=== PATIENT | female | born 1925 | race Caucasian/White ===

== ENCOUNTER → 2016-04-10 | Outpatient (CLI) | payer OTHER, BC ==
[~2016-04-10] MED LIST: ACET-1256 PO; ALBUAER2 INH; ALUM-51 PO; ANSHCCR PR; ASCO10003 PO; BCTOPO TOP; CALCTAB5 PO; CARB1SOL8 OT; CARV6.252 PO; CHOL100010 PO; CHOL100041 PO; CMD5 PO; CMD75 PO; CRAN1CAP15 PO; CRAN1TAB3 PO; DICL1GEL28 TOP; DIPH25CA65 PO; DOCU-94 PO; DORZ1SOL6 OPB; ESCI10TA17 PO; FRS/40 PO; GUAI1TAB55 PO; HYDR25SU20 PR; HYDRCRE28 TOP; IMD/2 PO; KETO2CRE14 TOP; KFL500HP PO; LEVO100T7 PO; LEVO125T4 PO; LSX40 PO; LSX80 PO; MAGNSUS5 PO; MENTOIN TD; MENTOIN TOP; MOME6000 NAE; MOML PO; MONT1TAB3 PO; MULTTAB PO; NRN100 PO; NSNN50; NYST100010 TD; NZRCR TOP; ONDA4TAB46 PO; POLY1SOL6 OP; POLYSOL4 OPB; POTA10TA PO; PRED1SUS3 OPB; PRVHFAIN INH; PSYL55.43 PO; PSYLPOW6 PO; SALI1SPR3 NAE; SIMV20TA2 PO; SULF800T23 PO; SYMIN160 INH; TRAM-10 PO; TRMCR515 TOP; TYLOTC500 PO; VNTHFA/IN INH; WARF-280 PO; WARF7.5T4 PO; [UNRECOGNIZED DRUG - CODE] PO; [UNRECOGNIZED DRUG - CODE] TOP
[2016-04-10 16:55] LABS: BASO % 0.3 %; BASO ABS # 0.02 K/uL (0-0.2); COMPLETE YES; EOS % 2.4 %; HEMATOCRIT 40.1 % (37-47); IG% 0.5 %; LYMPH % 16.8 %; LYMPH ABS # 1.32 K/uL (1.2-3.4); MEAN CELL VOLUME 87.6 fL (80-100); MEAN CORPUSCULAR HGB CONC 33.2 g/dl (32-36); MEAN PLATELET VOLUME 12.1 fL (7.4-10.4); MONO % 7.4 %; NEUT % 72.6 %; PLATELET COUNT 216 K/uL (130-400); RED BLOOD COUNT 4.58 M/uL (4.2-5.4); WHITE BLOOD COUNT 7.87 K/uL (4.8-10.8)
[2016-04-10 17:00] LABS: INR 2.2 (0.9-1.1); PROTHROMBIN TIME (PATIENT) 24.2 SECONDS (9.0-12.0)
[2016-04-10 17:01] LABS: BLOOD UREA NITROGEN 27 mg/dl (7-18); BUN/CREATININE RATIO 16.7 (10-20); CALCIUM 9.2 mg/dl (8.5-10.1); CARBON DIOXIDE 28 mmol/L (21-32); CHLORIDE 104 mmol/L (98-107); GLUCOSE 104 mg/dl (70-99); POTASSIUM 4.1 mmol/L (3.5-5.1); SODIUM 142 mmol/L (136-145)
== END | disposition home or self-care (01) ==
LOC: C.LABBC 12:41
PROVIDERS: ATTEND Internal Medicine Geriatric Medicine
DX: I35.0 Nonrheumatic aortic (valve) stenosis (principal); K62.5 Hemorrhage of anus and rectum; I48.2 Chronic atrial fibrillation

== ENCOUNTER 2016-05-14 23:51 | Emergency (ER) | payer OTHER, BC ==
[~2016-05-14] VITALS: Ht 154.9 cm; Wt 108.0 kg
[~2016-05-14 23:51] MED LIST changes: -ACET-1256 PO; -BCTOPO TOP; -CARB1SOL8 OT; -CARV6.252 PO; -CHOL100041 PO; -CMD5 PO; -CMD75 PO; -CRAN1TAB3 PO; -DIPH25CA65 PO; -DOCU-94 PO; -DORZ1SOL6 OPB; -ESCI10TA17 PO; -GUAI1TAB55 PO; -HYDR25SU20 PR; -HYDRCRE28 TOP; -IMD/2 PO; -KFL500HP PO; -LEVO100T7 PO; -LSX40 PO; -LSX80 PO; -MENTOIN TD; -MENTOIN TOP; -MOME6000 NAE; -MOML PO; -MONT1TAB3 PO; -NRN100 PO; -NYST100010 TD; -NZRCR TOP; -ONDA4TAB46 PO; -POLY1SOL6 OP; -POTA10TA PO; -PRED1SUS3 OPB; -PRVHFAIN INH; -PSYLPOW6 PO; -SALI1SPR3 NAE; -SIMV20TA2 PO; -SULF800T23 PO; -TRAM-10 PO; -TRMCR515 TOP; -TYLOTC500 PO; -VNTHFA/IN INH; -WARF-280 PO; -[UNRECOGNIZED DRUG - CODE] PO; -[UNRECOGNIZED DRUG - CODE] TOP
[2016-05-15 00:02] VITALS: Ht 154.9 cm; Wt 108.0 kg
[2016-05-15 00:38] LABS: HEMATOCRIT 38.9 % (37-47); MEAN CORPUSCULAR HEMOGLOBIN 30.7 pg (25-34); MEAN CORPUSCULAR HGB CONC 34.4 g/dl (32-36); MEAN PLATELET VOLUME 11.1 fL (7.4-10.4); PLATELET COUNT 196 K/uL (130-400); RED BLOOD COUNT 4.37 M/uL (4.2-5.4); WHITE BLOOD COUNT 5.99 K/uL (4.8-10.8)
[2016-05-15 00:57] LABS: BASO % 0.2 %; BASO ABS # 0.01 K/uL (0-0.2); COMPLETE YES; EOS % 2.7 %; IG% 0.5 %; LYMPH % 25.9 %; LYMPH ABS # 1.55 K/uL (1.2-3.4); NEUT % 62.7 %
--- NOTE | 2016-05-15 01:02 | EMERGENCY ROOM VISIT NOTE ---
History Report prepared by Norma: Barron Smart Under the Supervision of: Dr. Ann Marie De Paz D.O. First contact with patient: 00:17 Chief Complaint: SHOULDER PAIN Stated Complaint: SHOULDER/BACK PAIN History of Present Illness The patient is a 89 year old female who presents to the Emergency Room with complaints of sudden sharp left shoulder pain starting around 2100 tonight. The patient states that the pain went into her neck and chest. She states that the pain lasted for a couple of seconds, and then it went away. The patient states that she has never had anything like this before. The patient states that she has had a cough, and she states that she had congestive heart failure about a year ago. She additionally states that she is currently taking Coumadin. Source of History: patient Onset: 2100 Position: shoulder (left) Quality: sharp Timing: other (sudden) Associated Symptoms: + chest pain, + cough, + neck pain Review of Systems See HPI for pertinent positives & negatives. A total of 10 systems reviewed and were otherwise negative. Past Medical & Surgical Medical Problems: (1) Acute bronchitis (2) Acute exacerbation of CHF (congestive heart failure) (3) Acute pericarditis (4) Arthritis (5) Asthma (6) ATRIAL FIBRILLATION (7) CHF exacerbation (8) Diarrhea (9) Fever (10) HYPERLIPIDEMIA NEC/NOS (11) HYPERTENSION NOS (12) INTERTROCHANTERIC FX-CL (13) Irregular heart rhythm (14) KNEE JOINT REPLACEMENT STATUS (15) Murmur, cardiac (16) Scarlet fever (17) Stasis dermatitis Surgical Problems: (1) History of appendectomy (2) History of cholecystectomy Family History Diabetes mellitus FHx: lung disease Gallbladder disease Heart disease Hypertension Social History Smoking Status: Unknown if Ever Smoked Alcohol Use: none Drug Use: none Marital Status: Housing Status: assisted living Occupation Status: retired Current/Historical Medications Scheduled Budesonide/Formoterol Fumarate (Symbicort 160/4.5 Inhaler ), 2 PUFFS INH QAM Carvedilol (Coreg), 6.25 MG PO BID Cholecalciferol (D 1000), 1,000 UNITS PO DAILY Cranberry-Vitamin C-Vitamin E (Cranberry), 450 MG PO BID Docusate Sodium (Colace), 200 CAP PO DAILY Dorzolamide Hcl-Timolol Maleat (Cosopt Oph), 1 DROP OPB BID Escitalopram (Lexapro), 10 MG PO DAILY Ketoconazole 2% (Nizoral 2%), 1 APPLN TOP BID Levothyroxine Sodium (Levothyroxine Sodium), 125 MCG PO DAILY Loperamide Hcl (Imodium), 2 MG PO DAILY/PRN/UD Mometasone Furoate (Nasal) (Mometasone Furoate), 2 SPRAYS XXX DAILY Montelukast Sodium (Singulair), 10 MG PO DAILY Potassium Chloride (K-Tabs), 20 MEQ PO DAILY Prednisolone Acetate (Ophth) (Pred Forte 1% Oph), 1 DROPS OPB DAILY Psyllium (Reguloid), 0.5 TBS PO DAILY Saline (Saline Nasal Kincaid), 1 SPRAY NURYS BID Simvastatin (Zocor), 20 MG PO 3XWK Warfarin Sod (Coumadin), 5 MG PO 5XWK Warfarin Sod (Coumadin), 7.5 MG PO 2XWK Scheduled PRN Acetaminophen (Tylenol), 1,000 MG PO Q8 PRN for Pain or Fever Albuterol (Ventolin Hfa), 2 PUFFS INH QID PRN for Wheezing Alum & Mag Hydrox-Simethicone (Qc Antacid), 10-20 ML PO QID PRN for Dyspepsia Diphenhydramine Hcl (Benadryl Allergy), 25 MG PO Q8 PRN for Itching Furosemide (Lasix), 40 MG PO DAILY PRN for WEIGHT GAIN 3POUNDS OR MORE Guaifenesin Ext Rel (Mucinex Ext Rel), 600-1,200 MG PO BID PRN for CONGESTION Hydrocortisone Acetate (Rectal (Anusol-Hc), 25 MG NH BID PRN for Hemorrhoids Magnesium Hydroxide (Milk Of Magnesia), 30 ML PO DAILY PRN for ACUTE CONSTIPATION Menthol-Zinc Oxide (Calmoseptine), 1 APPLN TD DAILY PRN for IRRITATION Nystatin (Topical) (Nystop), 1 APPLN TD TID PRN for RASH Ondansetron Hcl (Zofran), 4 MG PO DAILY PRN for Nausea Phenylephrine W/ Dm-Gg (Qc Tussin Cf), 10 ML PO TID PRN for Cough Polyethylene Glycol-Propylene (Systane Ultra), 1 DROPS OP BID PRN for DRYNESS Allergies Coded Allergies: Tetanus Toxoid (Verified Allergy, Severe, REDNESS AND SWELLING OF INJECTION SITE AND SURROUNDING AREA, 04/25/15) Macrolides (Verified Allergy, Mild, 04/25/15) Tetracyclines (Verified Allergy, Mild, 04/25/15) Erythromycin (Verified Allergy, Unknown, ?, 04/25/15) Fluticasone (Verified Allergy, Unknown, UNKNOWN, 04/25/15) Levofloxacin (Unverified Allergy, Unknown, OTHER, 04/25/15) PT STATES DR Vale TOVAR SAID PATIENT IS NOT TO TAKE LEVAQUIN Milk Protein Extract (Verified Allergy, Unknown, UNKNOWN, 04/25/15) Salmeterol (Verified Allergy, Unknown, UNKNOWN, 04/25/15) Physical Exam Vital Signs Date Time Temp Pulse Resp B/P Pulse Ox O2 Delivery O2 Flow Rate FiO2 05/15/16 02:04 77 16 120/78 92 Room Air 05/15/16 01:17 78 16 121/72 93 Room Air 05/15/16 00:02 73 20 137/68 97 Room Air Physical Exam HEENT: Head - normocephalic and atraumatic Pupils are equal, round, and reactive to light. Extraocular eye muscles are intact, and sclera are anicteric. Nose - moist nasal mucosa without discharge. Mouth - moist buccal mucosa. Oropharynx is nonerythematous and there is no tonsillar exudate or edema noted. Neck: Supple; no JVD, nuchal rigidity, cervical lymphadenopathy, or auscultated bruits. Heart: Regular rate and rhythm. There is a normal S1 and S2 with no murmurs, clicks, or gallops appreciated. Lungs: Clear to auscultation bilaterally with no wheezes, rales, or rhonchi. Abdomen: Soft, completely nontender, nondistended, with good bowel sounds. There are no palpable pulsatile masses or hepatosplenomegaly. There is no guarding, rigidity, or rebound noted. Back: Obvious significant muscle spasm over the left posterior trapezius muscle. The patient has moderate pain with palpation in that area. Extremities: No evidence of cyanosis, clubbing, or edema. There are easily palpable peripheral pulses. Skin: warm and dry with good turgor and no rashes. Medical Decision & Procedures ER Provider Diagnostic Interpretation: X-ray results as stated below per interpretation by me: Chest X-ray: No acute findings in the left upper lung. No pneumothorax. Stable cardiomegaly Laboratory Results 05/15/16 00:05 Red Blood Count 4.37, Mean Corpuscular Volume 89.0, Mean Corpuscular Hemoglobin 30.7, Mean Corpuscular Hemoglobin Concent 34.4, Mean Platelet Volume 11.1, Neutrophils (%) (Auto) 62.7, Lymphocytes (%) (Auto) 25.9, Monocytes (%) (Auto) 8.0, Eosinophils (%) (Auto) 2.7, Basophils (%) (Auto) 0.2, Neutrophils # (Auto) 3.76, Lymphocytes # (Auto) 1.55, Monocytes # (Auto) 0.48, Eosinophils # (Auto) 0.16, Basophils # (Auto) 0.01 05/15/16 00:05 Test 05/15/16 00:05 White Blood Count 5.99 K/uL (4.8-10.8) Red Blood Count 4.37 M/uL (4.2-5.4) Hemoglobin 13.4 g/dL (12.0-16.0) Hematocrit 38.9 % (37-47) Mean Corpuscular Volume 89.0 fL (80-100) Mean Corpuscular Hemoglobin 30.7 pg (25-34) Mean Corpuscular Hemoglobin Concent 34.4 g/dl (32-36) Platelet Count 196 K/uL (130-400) Mean Platelet Volume 11.1 fL (7.4-10.4) Neutrophils (%) (Auto) 62.7 % Lymphocytes (%) (Auto) 25.9 % Monocytes (%) (Auto) 8.0 % Eosinophils (%) (Auto) 2.7 % Basophils (%) (Auto) 0.2 % Neutrophils # (Auto) 3.76 K/uL (1.4-6.5) Lymphocytes # (Auto) 1.55 K/uL (1.2-3.4) Monocytes # (Auto) 0.48 K/uL (0.11-0.59) Eosinophils # (Auto) 0.16 K/uL (0-0.5) Basophils # (Auto) 0.01 K/uL (0-0.2) RDW Standard Deviation 47.7 fL (36.4-46.3) RDW Coefficient of Variation 14.5 % (11.5-14.5) Immature Granulocyte % (Auto) 0.5 % Immature Granulocyte # (Auto) 0.03 K/uL (0.00-0.02) Red Blood Cell Morphology Unremarkable Anion Gap 11.0 mmol/L (3-11) Est Creatinine Clear Calc Drug Dose 30.9 ml/min Estimated GFR () 38.5 Estimated GFR (Non- 33.2 BUN/Creatinine Ratio 20.0 (10-20) Calcium Level 8.5 mg/dl (8.5-10.1) Total Creatine Kinase 47 U/L (26-192) Creatine Kinase MB < 0.5 ng/ml (0.5-3.6) Creatine Kinase MB Ratio (0-3.0) Troponin I < 0.015 ng/ml (0-0.045) Laboratory results per my review. ECG Indication: back/shoulder pain Rate (beats per minute): 74 Rhythm: atrial fibrillation Findings: no acute ischemic change, no ectopy ED Course 0017: Past medical records reviewed. The patient was evaluated in room A4. A complete history and physical exam was performed. A twelve-lead EKG was obtained. An IV lock was initiated and labs were drawn as above. The patient went for a chest x-ray as described above. 0205: Upon reevaluation, the patient is still pain free. I discussed findings and results with her. She verbalized agreement of the treatment plan. She was discharged home. Medical Decision The patient is a 89 year old female who presents to the ED with left shoulder pain. Differential diagnosis includes PE, pneumonia, cardiac ischemia, shingles , musculoskeletal, back pain, shoulder pain, bursitis of the shoulder Labs: Normal white count and H&H, negative troponin, normal glucose, BUN 28, creatinine 1.4 which is baseline for her The patient's episode of left-sided chest and shoulder discomfort lasted for only a couple of seconds. She had no recurrence of the pain while here in the emergency department. On physical exam, the patient had obvious significant muscle spasm with pain to palpation over the left shoulder. I've asked the patient use Tylenol for pain and apply heat to that area of muscles. The patient was told to return to the emergency department if she had recurrent symptoms that persisted or follow-up with her PCP. Impression Primary Impression: Left shoulder pain Scribe Attestation The scribe's documentation has been prepared under my direction and personally reviewed by me in its entirety. I confirm that the note above accurately reflects all work, treatment, procedures, and medical decision making performed by me. Departure Information Dispostion Home / Self-Care Referrals Edwardo Tovar M.D. (PCP) Forms HOME CARE DOCUMENTATION FORM, IMPORTANT VISIT INFORMATION Patient Instructions [facility] Additional Instructions Rest. Apply heat to your shoulder Use tylenol for the pain Follow up with the PCP if symptoms persist
[2016-05-15] MEDS ORDERED: CMD5 PO (01:07)
[2016-05-15] MEDS ORDERED: CMD75 PO (01:10)
[2016-05-15 01:13] LABS: BLOOD UREA NITROGEN 28 mg/dl (7-18); CALCIUM 8.5 mg/dl (8.5-10.1); CARBON DIOXIDE 27 mmol/L (21-32); CHLORIDE 104 mmol/L (98-107); GLUCOSE 98 mg/dl (70-99); POTASSIUM 3.7 mmol/L (3.5-5.1); SODIUM 142 mmol/L (136-145)
[2016-05-15] MEDS ORDERED: HYDR25SU20 PR (01:19)
--- NOTE | 2016-05-15 06:53 | DIAGNOSTIC IMAGING REPORT ---
CHEST 2 VIEWS ROUTINE CLINICAL HISTORY: eval left upper chest pain dyspnea COMPARISON STUDY: 06/21/2015 FINDINGS: Slight chronic blunting lateral costophrenic angles. Lungs otherwise appear clear. The heart is top limits normal terms of size. IMPRESSION: Chronic change. No acute process. Electronically signed by: Navarro Nova M.D. 05/15/2016 6:52 AM Dictated Date/Time: 05/15/2016 6:51 AM
[2016-05-15 07:36] VITALS: BP 152/81; PULSE 71; O2SAT 97
[2016-07-24] MEDS ORDERED: KFL500HP PO (09:04)
[2016-08-05] MEDS ORDERED: SULF800T23 PO (13:38)
[2016-12-24] MEDS ORDERED: CHOL100041 PO (00:48)
[2016-12-24] MEDS ORDERED: MOME6000 NAE (00:53)
[2016-12-24] MEDS ORDERED: NYST100010 TD (00:55)
[2016-12-24] MEDS ORDERED: POTA10TA PO (00:58)
[2016-12-24] MEDS ORDERED: PSYLPOW6 PO (01:01)
[2016-12-24] MEDS ORDERED: SALI1SPR3 NAE (01:03)
[2016-12-24] MEDS ORDERED: MENTOIN TD (01:13)
[2016-12-24] MEDS ORDERED: GUAI1TAB55 PO (01:25)
[2016-12-24] MEDS ORDERED: ALUM-51 PO (01:27)
[2016-12-24] MEDS ORDERED: [UNRECOGNIZED DRUG - CODE] PO (01:29)
[2016-12-24] MEDS ORDERED: POLY1SOL6 OP (01:31)
[2016-12-24] MEDS ORDERED: NRN100 PO (09:04)
[2016-12-24] MEDS ORDERED: LSX80 PO (09:04)
[2016-12-24] MEDS ORDERED: ACET-1256 PO (09:04)
[2016-12-24] MEDS ORDERED: LSX40 PO (09:04)
[2016-12-24] MEDS ORDERED: DIPH25CA65 PO (10:51)
[2016-12-24] MEDS ORDERED: DOCU-94 PO (10:51)
[2016-12-24] MEDS ORDERED: IMD/2 PO (10:51)
[2016-12-24] MEDS ORDERED: CARV6.252 PO (10:51)
[2016-12-24] MEDS ORDERED: MOML PO (15:24)
[2016-12-24] MEDS ORDERED: ONDA4TAB46 PO (18:07)
[2016-12-24] MEDS ORDERED: DORZ1SOL6 OPB (18:07)
[2016-12-24] MEDS ORDERED: PRVHFAIN INH (18:07)
[2016-12-24] MEDS ORDERED: TYLOTC500 PO (18:07)
[2016-12-24] MEDS ORDERED: ESCI10TA17 PO (18:07)
[2016-12-24] MEDS ORDERED: TRAM-10 PO (18:07)
[2016-12-24] MEDS ORDERED: MENTOIN TOP (21:22)
[2016-12-24] MEDS ORDERED: SYMIN160 INH (21:22)
[2016-12-24] MEDS ORDERED: CARB1SOL8 OT (21:22)
[2016-12-24] MEDS ORDERED: LEVO100T7 PO (21:22)
[2016-12-24] MEDS ORDERED: WARF-280 PO (21:22)
[2016-12-24] MEDS ORDERED: [UNRECOGNIZED DRUG - CODE] TOP (21:22)
[2016-12-24] MEDS ORDERED: CRAN1TAB3 PO (21:22)
[2016-12-24] MEDS ORDERED: MONT1TAB3 PO (23:30)
[2016-12-24] MEDS ORDERED: SIMV20TA2 PO (23:32)
[2016-12-24] MEDS ORDERED: PRED1SUS3 OPB (23:36)
[2016-12-25] MEDS ORDERED: TRMCR515 TOP (22:55)
[2016-12-25] MEDS ORDERED: NZRCR TOP (22:55)
[2016-12-25] MEDS ORDERED: HYDRCRE28 TOP (22:55)
== END 2016-05-15 07:37 | disposition home or self-care (01) ==
LOC: EDBD 23:51 → C.EDA 23:53
DX: M25.512 Pain in left shoulder (principal); R07.89 Other chest pain; I50.9 Heart failure, unspecified; J45.909 Unspecified asthma, uncomplicated; I48.91 Unspecified atrial fibrillation; I11.0 Hypertensive heart disease with heart failure; E78.5 Hyperlipidemia, unspecified; Z79.899 Other long term (current) drug therapy; Z79.01 Long term (current) use of anticoagulants; Z83.3 Family history of diabetes mellitus; Z82.49 Family history of ischemic heart disease and other diseases of the circulatory system

== ENCOUNTER 2016-07-17 12:48 | Emergency (ER) | payer OTHER, BC ==
[~2016-07-17] VITALS: Ht 162.6 cm; Wt 103.1 kg
[~2016-07-17 12:48] MED LIST changes: -ACET-1256 PO; -ALUM-51 PO; -BCTOPO TOP; -CARB1SOL8 OT; -CARV6.252 PO; -CHOL100041 PO; -CRAN1TAB3 PO; -DIPH25CA65 PO; -DOCU-94 PO; -DORZ1SOL6 OPB; -ESCI10TA17 PO; -GUAI1TAB55 PO; -HYDRCRE28 TOP; -IMD/2 PO; -KFL500HP PO; -LEVO100T7 PO; -LSX40 PO; -LSX80 PO; -MENTOIN TD; -MENTOIN TOP; -MOME6000 NAE; -MOML PO; -MONT1TAB3 PO; -NRN100 PO; -NYST100010 TD; -NZRCR TOP; -ONDA4TAB46 PO; -POLY1SOL6 OP; -POTA10TA PO; -PRED1SUS3 OPB; -PRVHFAIN INH; -PSYLPOW6 PO; -SALI1SPR3 NAE; -SIMV20TA2 PO; -SULF800T23 PO; -TRAM-10 PO; -TRMCR515 TOP; -TYLOTC500 PO; -VNTHFA/IN INH; -WARF-280 PO; -[UNRECOGNIZED DRUG - CODE] PO; -[UNRECOGNIZED DRUG - CODE] TOP
[2016-07-17 13:00] VITALS: TEMP 36.8; Ht 162.6 cm; Wt 103.1 kg
[2016-07-17] MEDS ORDERED: OXYCODONE HCL IR 5 MG TAB (IMMEDIATE RELEASE) PO STA (13:18)
[2016-07-17 13:57] LABS: BASO % 0.1 %; BASO ABS # 0.01 K/uL (0-0.2); COMPLETE YES; EOS % 2.1 %; HEMATOCRIT 43.4 % (37-47); IG% 0.4 %; LYMPH % 17.4 %; LYMPH ABS # 1.18 K/uL (1.2-3.4); MEAN CORPUSCULAR HGB CONC 32.9 g/dl (32-36); MEAN PLATELET VOLUME 11.7 fL (7.4-10.4); MONO % 7.8 %; NEUT % 72.2 %; PLATELET COUNT 206 K/uL (130-400); RED BLOOD COUNT 4.93 M/uL (4.2-5.4)
[2016-07-17 14:14] LABS: PARTIAL THROMBOPLASTIN RATIO 1.7
--- NOTE | 2016-07-17 14:14 | DIAGNOSTIC IMAGING REPORT ---
CT SCAN OF THE BRAIN WITHOUT IV CONTRAST CLINICAL HISTORY: Fall. COMPARISON STUDY: No priors. TECHNIQUE: Unenhanced axial CT scan of the brain is performed from the vertex to the skull base. CT DOSE: 1039.27 mGy.cm FINDINGS: Brain parenchyma: There are age-related involutional changes noting mild subcortical and periventricular microangiopathic change. There is no hemorrhage, mass effect, or evidence of acute territorial ischemia by CT criteria. Baad-white matter is preserved. No extra-axial fluid collection is seen. Prominent extra-axial CSF is noted. Ventricles, sulci, cisterns: Prominent secondary to involutional change. Intracranial vasculature: There is atherosclerotic calcification of the cavernous carotid arteries. Calvarium: The skeletal structures are osteopenic. There is no depressed calvarial fracture. Sinuses and mastoids: The visualized paranasal sinuses are clear. The mastoid air cells are well pneumatized. Orbits: The bony orbits are grossly intact. There are bilateral ocular lens implants and there has been banding of both ocular globes. IMPRESSION: Senescent changes as above with no hemorrhage, mass effect, or evidence of acute territorial ischemia by CT criteria. Electronically signed by: Rock Reid M.D. 07/17/2016 2:12 PM Dictated Date/Time: 07/17/2016 2:09 PM
[2016-07-17 14:22] LABS: BUN/CREATININE RATIO 18.1 (10-20); CALCIUM 9.2 mg/dl (8.5-10.1); CREATININE 1.4 mg/dl (0.60-1.20); POTASSIUM 3.5 mmol/L (3.5-5.1)
--- NOTE | 2016-07-17 14:23 | DIAGNOSTIC IMAGING REPORT ---
CERVICAL SPINE CT CT DOSE: HISTORY: Trauma Fall. On Coumadin. Left side neck pain TECHNIQUE: Multiaxial CT images of the cervical spine were performed and reformatted in the sagittal and coronal plane without the use of contrast. COMPARISON: None. FINDINGS: No fractures. No subluxation. Prevertebral soft tissues and the C1-C2 interval are intact. No pneumothorax. Degenerative disc change most prominent at C5-C6. No evidence for compression deformity. C1-C2 complex is intact. Pulmonary apices are clear. IMPRESSION: No fractures within the cervical spine. Moderate degenerative change. Electronically signed by: Navarro Nova M.D. 07/17/2016 2:21 PM Dictated Date/Time: 07/17/2016 2:15 PM
[2016-07-17 14:26] LABS: INR 3.8 (0.9-1.1)
--- NOTE | 2016-07-17 15:22 | DIAGNOSTIC IMAGING REPORT ---
LEFT SHOULDER 3 VIEWS HISTORY: Fall. Left shoulder pain COMPARISON: None. FINDINGS: There is no fracture or dislocation. Soft tissue swelling within the lateral shoulder. No radiopaque foreign bodies. The bones are osteopenic. The left clavicle is intact. Mild degenerative changes within the left shoulder. IMPRESSION: Soft tissue swelling within the left shoulder. No fracture or dislocation. Electronically signed by: Lobo Farris M.D. 07/17/2016 3:20 PM Dictated Date/Time: 07/17/2016 3:18 PM
--- NOTE | 2016-07-17 15:22 | DIAGNOSTIC IMAGING REPORT ---
TWO VIEW CHEST CLINICAL HISTORY: Fall. Left-sided chest pain. FINDINGS: AP and lateral chest radiographs are compared to study dated 05/15/16 and correlated with chest CT dated 04/26/2015.. The examination is degraded by large body habitus and by patient rotation on AP view. The heart is enlarged and there is atherosclerotic calcification of the thoracic aorta. The pulmonary vasculature is noncongested. There is bibasilar atelectasis. No airspace consolidation or large pleural effusion is seen. Atelectasis is noted at the left lung base. There is no pneumothorax. The skeletal structures are osteopenic. 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 Cholecystectomy clips are identified in the right upper quadrant. IMPRESSION: Cardiomegaly with no acute cardiopulmonary abnormality. Electronically signed by: Rock Reid M.D. 07/17/2016 3:20 PM Dictated Date/Time: 07/17/2016 3:18 PM
[2016-07-17] MEDS ORDERED: NZRCR TOP (15:24)
[2016-07-17] MEDS ORDERED: VNTHFA/IN INH (15:24)
--- NOTE | 2016-07-17 15:25 | DIAGNOSTIC IMAGING REPORT ---
LEFT FOREARM 2 VIEWS CLINICAL HISTORY: Fall with left arm pain. FINDINGS: AP and lateral views of the left forearm are obtained. Correlation is made with left elbow radiographs dated 10/13/2007. The skeletal structures are osteopenic. There is no radiographic evidence of fracture. Advanced arthritic change and chronic appearing deformity is noted in the wrist. Chronic posttraumatic deformity is noted in the radial head. Arthritic change is also seen in the elbow. Soft tissue edema is present dorsally. There is atherosclerotic calcification of the regional arteries. IMPRESSION: 1. Dorsal soft tissue edema with no fracture identified in the left forearm. 2. Osteopenia with degenerative and chronic posttraumatic findings as above. Electronically signed by: Rock Reid M.D. 07/17/2016 3:23 PM Dictated Date/Time: 07/17/2016 3:20 PM
[2016-07-17 16:34] VITALS: BP 115/65; PULSE 86; O2SAT 92
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
--- NOTE | 2016-07-17 17:10 | EMERGENCY ROOM VISIT NOTE ---
History First contact with patient: 13:06 Chief Complaint: FALL Stated Complaint: FALL History of Present Illness The patient is a 89 year old female who presents to the Emergency Room with complaints of mechanical fall that occurred approximately one hour prior to arrival. The patient was in this facility for x-rays were ordered as an outpatient. The patient states that she had x-rays performed of her low back, and as she exited the x-ray area she was accidentally struck by laundry cart. The patient states that she fell forward over her walker onto her left side. She does not believe that she struck her head, but does complain of left-sided neck, shoulder, and forearm pain. She does not believe that she lost consciousness. The patient is on Coumadin for atrial fibrillation. She does have some left upper chest wall pain with deep inspiration. She has had some ongoing left hip pain and did take Tylenol earlier today. Patient does not report lightheadedness, dizziness, palpitations, or shortness of breath before or after the event. She was able to ambulate following the fall. She rates her current discomfort a 5/10. She believes her tetanus is up-to-date. Review of Systems More than 10 systems were reviewed and otherwise negative with the exception of history of present illness. Past Medical/Surgical History Medical Problems: (1) Acute bronchitis (2) Acute exacerbation of CHF (congestive heart failure) (3) Acute pericarditis (4) Arthritis (5) Asthma (6) ATRIAL FIBRILLATION (7) CHF exacerbation (8) Diarrhea (9) Fever (10) HYPERLIPIDEMIA NEC/NOS (11) HYPERTENSION NOS (12) INTERTROCHANTERIC FX-CL (13) Irregular heart rhythm (14) KNEE JOINT REPLACEMENT STATUS (15) Murmur, cardiac (16) Scarlet fever (17) Stasis dermatitis Surgical Problems: (1) History of appendectomy (2) History of cholecystectomy Family History Diabetes mellitus FHx: lung disease Gallbladder disease Heart disease Hypertension Social History Smoking Status: Never Smoker Alcohol Use: none Drug Use: none Marital Status: Housing Status: assisted living Occupation Status: retired Current/Historical Medications Scheduled Budesonide/Formoterol Fumarate (Symbicort 160/4.5 Inhaler ), 2 PUFFS INH QAM Carvedilol (Coreg), 6.25 MG PO BID Cholecalciferol (D 1000), 1,000 UNITS PO DAILY Cranberry-Vitamin C-Vitamin E (Cranberry), 450 MG PO BID Docusate Sodium (Colace), 200 CAP PO DAILY Dorzolamide Hcl-Timolol Maleat (Cosopt Oph), 1 DROP OPB BID Escitalopram (Lexapro), 10 MG PO DAILY Ketoconazole (Ketoconazole), 1 APPLN TOP BID Levothyroxine Sodium (Levothyroxine Sodium), 125 MCG PO DAILY Loperamide Hcl (Imodium), 2 MG PO DAILY/PRN/UD Mometasone Furoate (Nasal) (Mometasone Furoate), 2 SPRAYS XXX DAILY Montelukast Sodium (Singulair), 10 MG PO DAILY Potassium Chloride (K-Tabs), 20 MEQ PO DAILY Prednisolone Acetate (Ophth) (Pred Forte 1% Oph), 1 DROPS OPB DAILY Psyllium (Reguloid), 0.5 TBS PO DAILY Saline (Saline Nasal [place]), 1 SPRAY NURYS BID Simvastatin (Zocor), 20 MG PO 3XWK Warfarin Sod (Coumadin), 5 MG PO 5XWK Warfarin Sod (Coumadin), 7.5 MG PO 2XWK Scheduled PRN Acetaminophen (Tylenol), 1,000 MG PO Q8 PRN for Pain or Fever Albuterol Hfa (Ventolin Hfa), 2 PUFFS INH QID PRN for SOB/Wheezing Alum & Mag Hydrox-Simethicone (Qc Antacid), 10-20 ML PO QID PRN for Dyspepsia Diphenhydramine Hcl (Benadryl Allergy), 25 MG PO Q8 PRN for Itching Furosemide (Lasix), 40 MG PO DAILY PRN for WEIGHT GAIN 3POUNDS OR MORE Guaifenesin Ext Rel (Mucinex Ext Rel), 600-1,200 MG PO BID PRN for CONGESTION Hydrocortisone Acetate (Rectal (Anusol-Hc), 25 MG VT BID PRN for Hemorrhoids Magnesium Hydroxide (Milk Of Magnesia), 30 ML PO DAILY PRN for Constipation Menthol-Zinc Oxide (Calmoseptine), 1 APPLN TD DAILY PRN for IRRITATION Nystatin (Topical) (Nystop), 1 APPLN TD TID PRN for RASH Ondansetron Hcl (Zofran), 4 MG PO DAILY PRN for Nausea Phenylephrine W/ Dm-Gg ([facility]), 10 ML PO TID PRN for Cough Polyethylene Glycol-Propylene (Systane Ultra), 1 DROPS OP BID PRN for DRYNESS Allergies Coded Allergies: Tetanus Toxoid (Verified Allergy, Severe, REDNESS AND SWELLING OF INJECTION SITE AND SURROUNDING AREA, 07/17/16) Macrolides (Verified Allergy, Mild, 07/17/16) Tetracyclines (Verified Allergy, Mild, 07/17/16) Erythromycin (Verified Allergy, Unknown, ?, 07/17/16) Fluticasone (Verified Allergy, Unknown, UNKNOWN, 07/17/16) Levofloxacin (Verified Allergy, Unknown, OTHER, 07/17/16) PT STATES DR Vale TOVAR SAID PATIENT IS NOT TO TAKE LEVAQUIN Milk Protein Extract (Verified Allergy, Unknown, UNKNOWN, 07/17/16) Salmeterol (Verified Allergy, Unknown, UNKNOWN, 07/17/16) Physical Exam Vital Signs Date Time Temp Pulse Resp B/P Pulse Ox O2 Delivery O2 Flow Rate FiO2 07/17/16 16:34 86 18 115/65 92 Room Air 07/17/16 14:53 78 18 120/67 94 Room Air 07/17/16 13:00 36.8 73 18 126/68 93 Room Air Physical Exam VITALS: Vitals are noted on the nurse's note and reviewed by myself. Vital signs stable. GENERAL: Well-developed, well-nourished, white female, who is in no acute distress and resting comfortably. Patient is cooperative with the examination. HEAD: Normocephalic atraumatic. EARS: External ear normal. External auditory canals clear, tympanic membranes pearly abad without erythema or effusion bilaterally. EYES: Pupils equal round and reactive to light and accommodation. Conjunctivae without injection, sclerae without icterus. Extraocular movements intact. NOSE: Patent, turbinates without inflammation or discharge. NECK: Supple without nuchal rigidity. No lymphadenopathy. No thyromegaly. Mild left-sided paracervical tenderness noted. No distinct midline cervical tenderness HEART: Regular rate and rhythm with course 3/6 systolic murmur LUNGS: Clear to auscultation bilaterally without wheezes, rales or rhonchi. No retractions or accessory muscle use. ABDOMEN: Positive normal bowel sounds x 4. Soft, nontender, without masses or organomegaly. No guarding or rebound tenderness. MUSCULOSKELETAL: Palpable tenderness appreciated over the left superior scapula. The patient is with full range of motion of the left upper extremity. No clavicular tenderness. There is additional tenderness over the mid lateral forearm with noted skin tear measuring 3 x 2 cm with underlying hematoma. No significant bleeding or deformity noted. Neurovascular status is intact to the distal extremity. NEURO: Patient was alert and oriented to person place and time. CN II through XII grossly intact. Medical Decision & Procedures ER Provider Diagnostic Interpretation: CT SCAN OF THE BRAIN WITHOUT IV CONTRAST CLINICAL HISTORY: Fall. COMPARISON STUDY: No priors. TECHNIQUE: Unenhanced axial CT scan of the brain is performed from the vertex to the skull base. CT DOSE: 1039.27 mGy.cm FINDINGS: Brain parenchyma: There are age-related involutional changes noting mild subcortical and periventricular microangiopathic change. There is no hemorrhage, mass effect, or evidence of acute territorial ischemia by CT criteria. Abad-white matter is preserved. No extra-axial fluid collection is seen. Prominent extra-axial CSF is noted. Ventricles, sulci, cisterns: Prominent secondary to involutional change. Intracranial vasculature: There is atherosclerotic calcification of the cavernous carotid arteries. Calvarium: The skeletal structures are osteopenic. There is no depressed calvarial fracture. Sinuses and mastoids: The visualized paranasal sinuses are clear. The mastoid air cells are well pneumatized. Orbits: The bony orbits are grossly intact. There are bilateral ocular lens implants and there has been banding of both ocular globes. IMPRESSION: Senescent changes as above with no hemorrhage, mass effect, or evidence of acute territorial ischemia by CT criteria. CERVICAL SPINE CT CT DOSE: HISTORY: Trauma Fall. On Coumadin. Left side neck pain TECHNIQUE: Multiaxial CT images of the cervical spine were performed and reformatted in the sagittal and coronal plane without the use of contrast. COMPARISON: None. FINDINGS: No fractures. No subluxation. Prevertebral soft tissues and the C1-C2 interval are intact. No pneumothorax. Degenerative disc change most prominent at C5-C6. No evidence for compression deformity. C1-C2 complex is intact. Pulmonary apices are clear. IMPRESSION: No fractures within the cervical spine. Moderate degenerative change. TWO VIEW CHEST CLINICAL HISTORY: Fall. Left-sided chest pain. FINDINGS: AP and lateral chest radiographs are compared to study dated 05/15/16 and correlated with chest CT dated 04/26/2015.. The examination is degraded by large body habitus and by patient rotation on AP view. The heart is enlarged and there is atherosclerotic calcification of the thoracic aorta. The pulmonary vasculature is noncongested. There is bibasilar atelectasis. No airspace consolidation or large pleural effusion is seen. Atelectasis is noted at the left lung base. There is no pneumothorax. The skeletal structures are osteopenic. 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 Cholecystectomy clips are identified in the right upper quadrant. IMPRESSION: Cardiomegaly with no acute cardiopulmonary abnormality. LEFT SHOULDER 3 VIEWS HISTORY: Fall. Left shoulder pain COMPARISON: None. FINDINGS: There is no fracture or dislocation. Soft tissue swelling within the lateral shoulder. No radiopaque foreign bodies. The bones are osteopenic. The left clavicle is intact. Mild degenerative changes within the left shoulder. IMPRESSION: Soft tissue swelling within the left shoulder. No fracture or dislocation. LEFT FOREARM 2 VIEWS CLINICAL HISTORY: Fall with left arm pain. FINDINGS: AP and lateral views of the left forearm are obtained. Correlation is made with left elbow radiographs dated 10/13/2007. The skeletal structures are osteopenic. There is no radiographic evidence of fracture. Advanced arthritic change and chronic appearing deformity is noted in the wrist. Chronic posttraumatic deformity is noted in the radial head. Arthritic change is also seen in the elbow. Soft tissue edema is present dorsally. There is atherosclerotic calcification of the regional arteries. IMPRESSION: 1. Dorsal soft tissue edema with no fracture identified in the left forearm. 2. Osteopenia with degenerative and chronic posttraumatic findings as above. Laboratory Results 07/17/16 13:37 Red Blood Count 4.93, Mean Corpuscular Volume 88.0, Mean Corpuscular Hemoglobin 29.0, Mean Corpuscular Hemoglobin Concent 32.9, Mean Platelet Volume 11.7, Neutrophils (%) (Auto) 72.2, Lymphocytes (%) (Auto) 17.4, Monocytes (%) (Auto) 7.8, Eosinophils (%) (Auto) 2.1, Basophils (%) (Auto) 0.1, Neutrophils # (Auto) 4.91, Lymphocytes # (Auto) 1.18, Monocytes # (Auto) 0.53, Eosinophils # (Auto) 0.14, Basophils # (Auto) 0.01 07/17/16 13:37 Test 07/17/16 13:37 07/17/16 13:40 White Blood Count 6.80 K/uL (4.8-10.8) Red Blood Count 4.93 M/uL (4.2-5.4) Hemoglobin 14.3 g/dL (12.0-16.0) Hematocrit 43.4 % (37-47) Mean Corpuscular Volume 88.0 fL (80-100) Mean Corpuscular Hemoglobin 29.0 pg (25-34) Mean Corpuscular Hemoglobin Concent 32.9 g/dl (32-36) Platelet Count 206 K/uL (130-400) Mean Platelet Volume 11.7 fL (7.4-10.4) Neutrophils (%) (Auto) 72.2 % Lymphocytes (%) (Auto) 17.4 % Monocytes (%) (Auto) 7.8 % Eosinophils (%) (Auto) 2.1 % Basophils (%) (Auto) 0.1 % Neutrophils # (Auto) 4.91 K/uL (1.4-6.5) Lymphocytes # (Auto) 1.18 K/uL (1.2-3.4) Monocytes # (Auto) 0.53 K/uL (0.11-0.59) Eosinophils # (Auto) 0.14 K/uL (0-0.5) Basophils # (Auto) 0.01 K/uL (0-0.2) RDW Standard Deviation 46.1 fL (36.4-46.3) RDW Coefficient of Variation 14.1 % (11.5-14.5) Immature Granulocyte % (Auto) 0.4 % Immature Granulocyte # (Auto) 0.03 K/uL (0.00-0.02) Prothrombin Time 43.0 SECONDS (9.0-12.0) Prothromb Time International Ratio 3.8 (0.9-1.1) Activated Partial Thromboplast Time 44.2 SECONDS (21.0-31.0) Partial Thromboplastin Ratio 1.7 Anion Gap 10.0 mmol/L (3-11) Est Creatinine Clear Calc Drug Dose 31.9 ml/min Estimated GFR () 38.5 Estimated GFR (Non- 33.2 BUN/Creatinine Ratio 18.1 (10-20) Calcium Level 9.2 mg/dl (8.5-10.1) Bedside Troponin I 0.000 ng/ml (0-0.045) Medications Administered Medications (Trade) Dose Ordered Sig/[place] Route Start Time Stop Time Status Last Admin Dose Admin Oxycodone HCl (Roxicodone Immediate Rel Tab) 5 mg NOW STAT PO 07/17/16 13:18 07/17/16 13:21 DC 07/17/16 13:44 5 MG ED Course Physical exam and history were performed. Nursing notes and EMR were reviewed. Patient appears to have suffered a fall and subsequent injury to her left arm and left shoulder. She is on Coumadin and complains of some left-sided neck pain. The patient was given OxyIR 5 mg here in the department. Because of her symptoms I did elect to establish an IV and check labs. CT scans of the head and neck were performed because of her injury and comorbidities. Plain films of the chest, shoulder, and arm were also performed. Ice packs were placed that her wound was cleansed and dressed by nursing. The patient's blood work is as above and was reviewed. She does not have a significantly elevated white blood cell count or gross anemia, bandemia, or significant electrolyte imbalance. Troponin 1 is negative. EKG showed atrial fibrillation at 71 beats per minute without acute ST elevation or evidence of ischemia. CT scans of the head and neck were without acute findings. Likewise plain films were also without acute findings. The patient does have an elevated INR of 3.8. The case was discussed with my attending physician, Dr. Handy, who also independently evaluated the patient. The patient appears well at this time and is quite comfortable. She appears stable for discharge home provided that she have close follow-up with her primary care physician. The patient was pleased with this and may continue to use Tylenol at home for pain control. She was asked to monitor for worsening or evolving symptoms and otherwise invited back to the ER anytime. The patient was discharged home with a neighbor and rated her discomfort a 2/10 at the time of departure. The chart was completed utilizing [employer] Voice Recognition Software. Grammatical errors, random word insertions, pronoun errors, and incomplete sentences are an occasional consequence of this system due to software limitations, ambient noise, and hardware issues. Any formal questions or concerns about the content, text, or information contained within the body of this dictation should be directly addressed to the provider for clarification. . Medical Decision Differential diagnosis includes, but is not limited to: Sprain, strain, fracture , dislocation, subluxation, contusion, bleed, no mass, skin tear, and others Impression Primary Impression: Fall Additional Impression: Contusion of multiple sites Departure Information Referrals Edwardo Tovar M.D. (PCP) Patient Instructions My [facility] Problem Qualifiers
[2016-07-24] MEDS ORDERED: KFL500HP PO (09:04)
[2016-08-05] MEDS ORDERED: SULF800T23 PO (13:38)
[2016-12-24] MEDS ORDERED: CHOL100041 PO (00:48)
[2016-12-24] MEDS ORDERED: MOME6000 NAE (00:53)
[2016-12-24] MEDS ORDERED: NYST100010 TD (00:55)
[2016-12-24] MEDS ORDERED: POTA10TA PO (00:58)
[2016-12-24] MEDS ORDERED: PSYLPOW6 PO (01:01)
[2016-12-24] MEDS ORDERED: SALI1SPR3 NAE (01:03)
[2016-12-24] MEDS ORDERED: MENTOIN TD (01:13)
[2016-12-24] MEDS ORDERED: GUAI1TAB55 PO (01:25)
[2016-12-24] MEDS ORDERED: ALUM-51 PO (01:27)
[2016-12-24] MEDS ORDERED: [UNRECOGNIZED DRUG - CODE] PO (01:29)
[2016-12-24] MEDS ORDERED: POLY1SOL6 OP (01:31)
[2016-12-24] MEDS ORDERED: LSX40 PO (09:04)
[2016-12-24] MEDS ORDERED: ACET-1256 PO (09:04)
[2016-12-24] MEDS ORDERED: LSX80 PO (09:04)
[2016-12-24] MEDS ORDERED: NRN100 PO (09:04)
[2016-12-24] MEDS ORDERED: DIPH25CA65 PO (10:51)
[2016-12-24] MEDS ORDERED: DOCU-94 PO (10:51)
[2016-12-24] MEDS ORDERED: IMD/2 PO (10:51)
[2016-12-24] MEDS ORDERED: CARV6.252 PO (10:51)
[2016-12-24] MEDS ORDERED: MOML PO (15:24)
[2016-12-24] MEDS ORDERED: PRVHFAIN INH (18:07)
[2016-12-24] MEDS ORDERED: ONDA4TAB46 PO (18:07)
[2016-12-24] MEDS ORDERED: TYLOTC500 PO (18:07)
[2016-12-24] MEDS ORDERED: ESCI10TA17 PO (18:07)
[2016-12-24] MEDS ORDERED: DORZ1SOL6 OPB (18:07)
[2016-12-24] MEDS ORDERED: TRAM-10 PO (18:07)
[2016-12-24] MEDS ORDERED: LEVO100T7 PO (21:22)
[2016-12-24] MEDS ORDERED: [UNRECOGNIZED DRUG - CODE] TOP (21:22)
[2016-12-24] MEDS ORDERED: CARB1SOL8 OT (21:22)
[2016-12-24] MEDS ORDERED: WARF-280 PO (21:22)
[2016-12-24] MEDS ORDERED: CRAN1TAB3 PO (21:22)
[2016-12-24] MEDS ORDERED: SYMIN160 INH (21:22)
[2016-12-24] MEDS ORDERED: MENTOIN TOP (21:22)
[2016-12-24] MEDS ORDERED: MONT1TAB3 PO (23:30)
[2016-12-24] MEDS ORDERED: SIMV20TA2 PO (23:32)
[2016-12-24] MEDS ORDERED: PRED1SUS3 OPB (23:36)
[2016-12-25] MEDS ORDERED: NZRCR TOP (22:55)
[2016-12-25] MEDS ORDERED: TRMCR515 TOP (22:55)
[2016-12-25] MEDS ORDERED: HYDRCRE28 TOP (22:55)
== END 2016-07-17 16:35 | disposition home or self-care (01) ==
LOC: EDBD 12:48 → C.EDC 12:50
DX: S51.802A Unspecified open wound of left forearm, initial encounter (principal); S50.12XA Contusion of left forearm, initial encounter; W22.8XXA Striking against or struck by other objects, initial encounter; Y92.238 Other place in hospital as the place of occurrence of the external cause; M54.2 Cervicalgia; I48.91 Unspecified atrial fibrillation; R07.89 Other chest pain; I50.9 Heart failure, unspecified; M19.90 Unspecified osteoarthritis, unspecified site; E78.5 Hyperlipidemia, unspecified; I10 Essential (primary) hypertension; Z79.01 Long term (current) use of anticoagulants; Z96.659 Presence of unspecified artificial knee joint; Z86.19 Personal history of other infectious and parasitic diseases; Z83.3 Family history of diabetes mellitus; Z82.49 Family history of ischemic heart disease and other diseases of the circulatory system; Z87.440 Personal history of urinary (tract) infections

== ENCOUNTER → 2016-07-17 | Outpatient (CLI) | payer OTHER, BC ==
[~2016-07-17] MED LIST changes: +ACET-1256 PO; -ANSHCCR PR; -ASCO10003 PO; +BCTOPO TOP; -CALCTAB5 PO; +CARB1SOL8 OT; +CARV6.252 PO; -CHOL100010 PO; +CHOL100041 PO; +CMD5 PO; +CMD75 PO; +CRAN1TAB3 PO; -DICL1GEL28 TOP; +DIPH25CA65 PO; +DOCU-94 PO; +DORZ1SOL6 OPB; +ESCI10TA17 PO; +GUAI1TAB55 PO; +HYDR25SU20 PR; +HYDRCRE28 TOP; +IMD/2 PO; +KFL500HP PO; +LEVO100T7 PO; -LEVO125T4 PO; +LEVO125T5 PO; +LSX40 PO; +LSX80 PO; +MENTOIN TD; +MENTOIN TOP; +MOME6000 NAE; +MOML PO; +MONT1TAB3 PO; -MULTTAB PO; +NRN100 PO; -NSNN50; +NYST100010 TD; +NZRCR TOP; +ONDA4TAB46 PO; +POLY1SOL6 OP; -POLYSOL4 OPB; +POTA10TA PO; +PRED1SUS3 OPB; +PRVHFAIN INH; -PSYL55.43 PO; +PSYLPOW6 PO; +SALI1SPR3 NAE; +SIMV20TA2 PO; +SULF800T23 PO; +TRAM-10 PO; +TRMCR515 TOP; +TYLOTC500 PO; +VNTHFA/IN INH; +WARF-280 PO; -WARF7.5T4 PO; +[UNRECOGNIZED DRUG - CODE] PO; +[UNRECOGNIZED DRUG - CODE] TOP
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
--- NOTE | 2016-07-17 13:02 | DIAGNOSTIC IMAGING REPORT ---
LUMBAR SPINE 5 VIEWS CLINICAL HISTORY: Chronic low back pain. FINDINGS: Five views of the lumbar spine are compared to study dated 02/02/2012. Correlation is made with abdominal CT dated 03/04/[address] dated 04/26/2015. The skeletal structures are osteopenic. There is no radiographic evidence of acute fracture or malalignment. There is a mild superior endplate compression deformity of L2. This was also likely present on the 04/26/[address] Vertebral body height is otherwise maintained throughout the lumbar spine. Small anterior osteophytes are seen throughout. The transverse and spinous processes are intact. There is no evidence of spondylolysis. Multilevel facet arthropathy is noted, greatest in the lower lumbar region. Moderate degenerative disc space narrowing is seen at all levels. The bony pelvis is intact as imaged. Sclerotic change is noted in the sacroiliac joints. Chronic posttraumatic deformity and postoperative change is seen in the left femur. There is a nonobstructed abdominal bowel gas pattern. Cholecystectomy clips are noted. Advanced atherosclerotic calcification is seen in the abdominal aorta. IMPRESSION: 1. No acute bony abnormality is identified involving the lumbar spine. 2. There is a mild and likely chronic superior endplate compression deformity of L2. 3. Osteopenia and lumbosacral spondylosis as above. Dictated: 07/17/2016 12:31 PM Transcribed: 07/17/2016 1:01 PM Cb Electronically signed by: Rock Reid M.D. 07/17/2016 1:41 PM Dictated Date/Time: 07/17/2016 12:31 PM
== END ==
LOC: C.RADBC 11:18
PROVIDERS: ATTEND Internal Medicine Geriatric Medicine
DX: Z87.440 Personal history of urinary (tract) infections (principal)

== ENCOUNTER 2016-07-27 08:01 | Emergency (ER) | payer OTHER, BC ==
[~2016-07-27] VITALS: Ht 162.6 cm; Wt 105.0 kg
[~2016-07-27 08:01] MED LIST changes: -ALBUAER2 INH; -KETO2CRE14 TOP; +KFL500HP PO; -MAGNSUS5 PO; +NZRCR TOP; +VNTHFA/IN INH
[2016-07-27 08:12] VITALS: Ht 162.6 cm; Wt 105.0 kg
[2016-07-27] MEDS ORDERED: MoRPHine SULFATE 10 MG/ML CARP/VIAL IV PRN (08:30)
[2016-07-27] MEDS ORDERED: MoRPHine SULFATE 2 MG/ML CARP ONE (08:47)
[2016-07-27 08:51] LABS: HEMATOCRIT 40.8 % (37-47); MEAN CELL VOLUME 89.7 fL (80-100); MEAN CORPUSCULAR HEMOGLOBIN 28.6 pg (25-34); MEAN CORPUSCULAR HGB CONC 31.9 g/dl (32-36); MEAN PLATELET VOLUME 10.9 fL (7.4-10.4); PLATELET COUNT 209 K/uL (130-400); RED BLOOD COUNT 4.55 M/uL (4.2-5.4); WHITE BLOOD COUNT 6.35 K/uL (4.8-10.8)
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
[2016-07-27] MEDS ORDERED: BCTOPO TOP (09:04)
[2016-07-27 09:09] LABS: CALCIUM 9.2 mg/dl (8.5-10.1)
[2016-07-27 09:10] LABS: BLOOD UREA NITROGEN 23 mg/dl (7-18); BUN/CREATININE RATIO 18.8 (10-20); CARBON DIOXIDE 26 mmol/L (21-32); CHLORIDE 107 mmol/L (98-107); GLUCOSE 96 mg/dl (70-99); POTASSIUM 4.1 mmol/L (3.5-5.1); SODIUM 142 mmol/L (136-145)
--- NOTE | 2016-07-27 09:16 | DIAGNOSTIC IMAGING REPORT ---
CHEST 2 VIEWS ROUTINE HISTORY: left chest pain COMPARISON: Chest 07/17/2016. FINDINGS: The heart remains enlarged. No pleural effusions. No pneumothorax. No new focal lung consolidations to suggest pneumonia. No evidence for pulmonary edema. Bibasilar linear densities favor subsegmental atelectasis. IMPRESSION: No significant change compared to the prior study. No acute process. Electronically signed by: Lobo Farris M.D. 07/27/2016 9:14 AM Dictated Date/Time: 07/27/2016 9:13 AM
[2016-07-27 09:28] VITALS: O2SAT 93
[2016-07-27 10:29] VITALS: TEMP 36.6; O2SAT 95
[2016-07-27 10:51] LABS: PARTIAL THROMBOPLASTIN RATIO 2.6; PROTHROMBIN TIME (PATIENT) 80.1 SECONDS (9.0-12.0)
[2016-07-27 10:55] LABS: INR 6.9 (0.9-1.1)
[2016-07-27 11:09] VITALS: BP 115/74; PULSE 74
[2016-08-05] MEDS ORDERED: SULF800T23 PO (13:38)
[2016-12-24] MEDS ORDERED: CHOL100041 PO (00:48)
[2016-12-24] MEDS ORDERED: MOME6000 NAE (00:53)
[2016-12-24] MEDS ORDERED: NYST100010 TD (00:55)
[2016-12-24] MEDS ORDERED: POTA10TA PO (00:58)
[2016-12-24] MEDS ORDERED: PSYLPOW6 PO (01:01)
[2016-12-24] MEDS ORDERED: SALI1SPR3 NAE (01:03)
[2016-12-24] MEDS ORDERED: MENTOIN TD (01:13)
[2016-12-24] MEDS ORDERED: GUAI1TAB55 PO (01:25)
[2016-12-24] MEDS ORDERED: ALUM-51 PO (01:27)
[2016-12-24] MEDS ORDERED: [UNRECOGNIZED DRUG - CODE] PO (01:29)
[2016-12-24] MEDS ORDERED: POLY1SOL6 OP (01:31)
[2016-12-24] MEDS ORDERED: NRN100 PO (09:04)
[2016-12-24] MEDS ORDERED: LSX80 PO (09:04)
[2016-12-24] MEDS ORDERED: ACET-1256 PO (09:04)
[2016-12-24] MEDS ORDERED: LSX40 PO (09:04)
[2016-12-24] MEDS ORDERED: CARV6.252 PO (10:51)
[2016-12-24] MEDS ORDERED: IMD/2 PO (10:51)
[2016-12-24] MEDS ORDERED: DOCU-94 PO (10:51)
[2016-12-24] MEDS ORDERED: DIPH25CA65 PO (10:51)
[2016-12-24] MEDS ORDERED: MOML PO (15:24)
[2016-12-24] MEDS ORDERED: ESCI10TA17 PO (18:07)
[2016-12-24] MEDS ORDERED: DORZ1SOL6 OPB (18:07)
[2016-12-24] MEDS ORDERED: ONDA4TAB46 PO (18:07)
[2016-12-24] MEDS ORDERED: TYLOTC500 PO (18:07)
[2016-12-24] MEDS ORDERED: PRVHFAIN INH (18:07)
[2016-12-24] MEDS ORDERED: TRAM-10 PO (18:07)
[2016-12-24] MEDS ORDERED: CARB1SOL8 OT (21:22)
[2016-12-24] MEDS ORDERED: LEVO100T7 PO (21:22)
[2016-12-24] MEDS ORDERED: SYMIN160 INH (21:22)
[2016-12-24] MEDS ORDERED: CRAN1TAB3 PO (21:22)
[2016-12-24] MEDS ORDERED: [UNRECOGNIZED DRUG - CODE] TOP (21:22)
[2016-12-24] MEDS ORDERED: MENTOIN TOP (21:22)
[2016-12-24] MEDS ORDERED: WARF-280 PO (21:22)
[2016-12-24] MEDS ORDERED: MONT1TAB3 PO (23:30)
[2016-12-24] MEDS ORDERED: SIMV20TA2 PO (23:32)
[2016-12-24] MEDS ORDERED: PRED1SUS3 OPB (23:36)
[2016-12-25] MEDS ORDERED: TRMCR515 TOP (22:55)
[2016-12-25] MEDS ORDERED: HYDRCRE28 TOP (22:55)
[2016-12-25] MEDS ORDERED: NZRCR TOP (22:55)
== END 2016-07-27 11:25 | disposition home or self-care (01) ==
LOC: EDBD 08:01 → C.EDB 08:03
DX: S40.012A Contusion of left shoulder, initial encounter (principal); S40.022A Contusion of left upper arm, initial encounter; S50.12XA Contusion of left forearm, initial encounter; W22.8XXA Striking against or struck by other objects, initial encounter; Y92.239 Unspecified place in hospital as the place of occurrence of the external cause; D68.32 Hemorrhagic disorder due to extrinsic circulating anticoagulants; I50.9 Heart failure, unspecified; M19.90 Unspecified osteoarthritis, unspecified site; J45.909 Unspecified asthma, uncomplicated; I48.91 Unspecified atrial fibrillation; E78.5 Hyperlipidemia, unspecified; I10 Essential (primary) hypertension; Z79.01 Long term (current) use of anticoagulants; Z83.3 Family history of diabetes mellitus; Z82.49 Family history of ischemic heart disease and other diseases of the circulatory system

== ENCOUNTER 2016-07-30 16:59 | Emergency (ER) | payer OTHER, BC ==
[~2016-07-30] VITALS: Ht 162.6 cm; Wt 103.0 kg
[~2016-07-30 16:59] MED LIST changes: +BCTOPO TOP; -FRS/40 PO; -HYDR25SU20 PR; -NZRCR TOP; -VNTHFA/IN INH
[2016-07-30 17:04] VITALS: TEMP 36.5; Ht 162.6 cm; Wt 103.0 kg
[2016-07-30 17:57] VITALS: O2SAT 96
[2016-07-30] MEDS ORDERED: HYDR25SU20 PR (18:07)
[2016-07-30 18:16] LABS: BASO % 0.4 %; BASO ABS # 0.03 K/uL (0-0.2); COMPLETE YES; EOS % 2.6 %; HEMATOCRIT 37.8 % (37-47); IG% 0.9 %; LYMPH % 21.3 %; LYMPH ABS # 1.45 K/uL (1.2-3.4); MEAN CELL VOLUME 89.4 fL (80-100); MEAN CORPUSCULAR HEMOGLOBIN 29.3 pg (25-34); MEAN CORPUSCULAR HGB CONC 32.8 g/dl (32-36); MEAN PLATELET VOLUME 10.2 fL (7.4-10.4); MONO % 6.5 %; NEUT % 68.3 %; PLATELET COUNT 217 K/uL (130-400); RED BLOOD COUNT 4.23 M/uL (4.2-5.4); WHITE BLOOD COUNT 6.81 K/uL (4.8-10.8)
[2016-07-30 18:27] LABS: INR 2.9 (0.9-1.1); PROTHROMBIN TIME (PATIENT) 32.2 SECONDS (9.0-12.0)
--- NOTE | 2016-07-30 18:36 | DIAGNOSTIC IMAGING REPORT ---
CHEST ONE VIEW PORTABLE HISTORY: EVALUATE RESPIRATORY DISTRESS.DYSPNEA COMPARISON: Chest 07/27/2016. FINDINGS: The heart remains enlarged. No pneumothorax. No new focal lung consolidations. No evidence for pulmonary edema. No pleural effusions. Linear densities the left lung base favor scarring or atelectasis. This remains unchanged. IMPRESSION: No significant change compared to the prior study. No acute process. Electronically signed by: Lobo Farris M.D. 07/30/2016 6:34 PM Dictated Date/Time: 07/30/2016 6:33 PM
[2016-07-30 18:39] LABS: ALT/SGPT 19 U/L (12-78); AST/SGOT 15 U/L (15-37); BLOOD UREA NITROGEN 24 mg/dl (7-18); BUN/CREATININE RATIO 18.7 (10-20); CALCIUM 8.8 mg/dl (8.5-10.1); CARBON DIOXIDE 31 mmol/L (21-32); CHLORIDE 108 mmol/L (98-107); GLUCOSE 91 mg/dl (70-99); POTASSIUM 3.9 mmol/L (3.5-5.1); SODIUM 142 mmol/L (136-145)
[2016-07-30 18:44] LABS: ALB/GLOB RATIO 0.9 (0.9-2); ALKALINE PHOSPHATASE 103 U/L (45-117)
[2016-07-30 20:32] LABS: URINE APPEARANCE CLEAR (CLEAR); URINE BILIRUBIN NEG (NEG); URINE COLOR YELLOW; URINE NITRITE NEG (NEG); URINE SPECIFIC GRAVITY 1.017 (1.000-1.030); UROBILINOGEN NEG (NEG)
[2016-07-30 20:39] LABS: MANUAL MICROSCOPIC REQUIRED? NO; REVIEW REQ? NO
[2016-07-30 21:14] VITALS: BP 124/69; PULSE 68; O2SAT 95
--- NOTE | 2016-07-30 23:36 | EMERGENCY ROOM VISIT NOTE ---
History Report prepared by Norma: Marlon Good Under the Supervision of: Dr. Atif Lua D.O. First contact with patient: 17:25 Chief Complaint: SHORTNESS OF BREATH Stated Complaint: SOB Nursing Triage Summary: Pt arrives from [facility] for evaluation post episode of SOB. pt reports she was talking on the phone when she suddenly became SOB. symptoms now resolved. pt reports she was knocked down by a cart at the facility about 3-4 weeks ago. Bruising to left upper arm, bilateral lower extremities. Wound to left FA which she is seeing wound care for. pt reports some pain with deep breathing on her left side. "I fell on my left side when that happened". History of Present Illness The patient is an 89 year old female who presents to the Emergency Room with complaints of resolved shortness of breath beginning eight and a half hours prior to arrival. She currently rates her discomfort as a 6/10 in severity. The patient states she was talking on the phone this morning, when she lost her breath for approximately thirty seconds. She denies experiencing anything like the episode in the past. The patient also complains of left sided abdominal pain and left sided back pain with today's symptoms. She states she fell two weeks ago, in which, she fell onto her left side. The patient notes she was evaluated in the ED three days ago for her abdominal and back pain. She states her discomfort worsens with movement of her left arm. The patient notes she is unaware if the abdominal and back pain was what caused her shortness of breath this morning at 9 AM. She states she is on Coumadin. Pt denies headache, cough, runny nose, change in vision, fevers, chest pain, nausea, vomiting, diarrhea, pain with urination, and melena. Source of History: patient Onset: eight and a half hours SYSTEM CONTROLLER Position: other (global) Symptom Intensity: 6/10 Quality: other (shortness of breath) Timing: resolved Associated Symptoms: + SOB, + abdominal pain, + back pain Review of Systems See HPI for pertinent positives & negatives. A total of 10 systems reviewed and were otherwise negative. Past Medical & Surgical Medical Problems: (1) Acute bronchitis (2) Acute exacerbation of CHF (congestive heart failure) (3) Acute pericarditis (4) Arthritis (5) Asthma (6) ATRIAL FIBRILLATION (7) CHF exacerbation (8) Diarrhea (9) Fever (10) HYPERLIPIDEMIA NEC/NOS (11) HYPERTENSION NOS (12) INTERTROCHANTERIC FX-CL (13) Irregular heart rhythm (14) KNEE JOINT REPLACEMENT STATUS (15) Murmur, cardiac (16) Scarlet fever (17) Stasis dermatitis Surgical Problems: (1) History of appendectomy (2) History of cholecystectomy Family History Diabetes mellitus FHx: lung disease Gallbladder disease Heart disease Hypertension Social History Smoking Status: Never Smoker Alcohol Use: none Drug Use: none Marital Status: Housing Status: assisted living Occupation Status: retired Current/Historical Medications Scheduled Acetaminophen (Tylenol), 1,000 MG PO BID Bacitracin (Bacitracin), 1 APPLN TOP BID Budesonide/Formoterol Fumarate (Symbicort 160/4.5 Inhaler ), 2 PUFFS INH BID Carvedilol (Coreg), 6.25 MG PO BIDM Cholecalciferol (D 1000), 1,000 UNITS PO DAILY Cranberry-Vitamin C-Vitamin E (Cranberry), 450 MG PO BID Docusate Sodium (Colace), 200 CAP PO DAILY Dorzolamide Hcl-Timolol Maleat (Cosopt Oph), 1 DROP OPB BID Escitalopram (Lexapro), 10 MG PO DAILY Furosemide (Furosemide), 80 MG PO QAM Levothyroxine Sodium (Levothyroxine Sodium), 125 MCG PO DAILY Loperamide Hcl (Imodium), 2 MG PO DAILY/PRN/UD Montelukast Sodium (Singulair), 10 MG PO DAILY Potassium Chloride (K-Tabs), 20 MEQ PO DAILY Prednisolone Acetate (Ophth) (Pred Forte 1% Oph), 1 DROPS OPB DAILY Psyllium (Reguloid), 0.5 TBS PO DAILY Saline (Saline Nasal [place]), 1 SPRAY NURYS HS Simvastatin (Zocor), 20 MG PO 3XWK Warfarin Sod (Coumadin), 5 MG PO 5XWK Warfarin Sod (Coumadin), 7.5 MG PO 2XWK Scheduled PRN Acetaminophen (Tylenol), 1,000 MG PO Q8 PRN for Pain or Fever Albuterol (Ventolin Hfa), 1-2 PUFFS INH Q4 PRN for SOB/Wheezing Alum & Mag Hydrox-Simethicone (Qc Antacid), 10-20 ML PO QID PRN for Dyspepsia Diphenhydramine Hcl (Benadryl Allergy), 25 MG PO Q8 PRN for Itching Furosemide (Furosemide), 40 MG PO DAILY PRN for WITH WT > 230 LBS Gabapentin (Gabapentin), 100 MG PO HS PRN for MOOD DISORDER Guaifenesin Ext Rel (Mucinex Ext Rel), 600-1,200 MG PO BID PRN for CONGESTION Hydrocortisone Acetate (Rectal (Anusol-Hc), 25 MG AL BID PRN for Hemorrhoids Magnesium Hydroxide (Milk Of Magnesia), 30 ML PO DAILY PRN for Constipation Menthol-Zinc Oxide (Calmoseptine), 1 APPLN TD DAILY PRN for IRRITATION Mometasone Furoate (Nasal) (Mometasone Furoate), 2 SPRAYS NURYS DAILY PRN for Nasal Congestion Nystatin (Topical) (Nystop), 1 APPLN TD TID PRN for RASH Ondansetron Hcl (Zofran), 4 MG PO DAILY PRN for Nausea Phenylephrine W/ Dm-Gg (Qc Tussin Cf), 10 ML PO TID PRN for Cough Polyethylene Glycol-Propylene (Systane Ultra), 1 DROPS OP BID PRN for DRYNESS Tramadol (Ultram), 25 MG PO DAILY PRN for Pain Allergies Coded Allergies: Tetanus Toxoid (Verified Allergy, Severe, REDNESS AND SWELLING OF INJECTION SITE AND SURROUNDING AREA, 07/30/16) Macrolides (Verified Allergy, Mild, 07/30/16) Tetracyclines (Verified Allergy, Mild, 07/30/16) Codeine (Unverified Allergy, Unknown, UNKNOWN, 07/30/16) CODEINE DERIVATIVES Erythromycin (Verified Allergy, Unknown, ?, 07/30/16) Fluticasone (Verified Allergy, Unknown, UNKNOWN, 07/30/16) Levofloxacin (Verified Allergy, Unknown, OTHER, 07/30/16) PT STATES DR Vale TOVAR SAID PATIENT IS NOT TO TAKE LEVAQUIN Milk Protein Extract (Verified Allergy, Unknown, UNKNOWN, 07/30/16) Salmeterol (Verified Allergy, Unknown, UNKNOWN, 07/30/16) Physical Exam Vital Signs Date Time Temp Pulse Resp B/P Pulse Ox O2 Delivery O2 Flow Rate FiO2 07/30/16 21:14 68 19 124/69 95 07/30/16 19:24 70 20 122/66 95 Room Air 07/30/16 18:10 78 20 136/72 96 Room Air 07/30/16 17:57 96 Room Air 07/30/16 17:40 75 07/30/16 17:04 97 Room Air 07/30/16 17:04 36.5 93 22 154/84 97 Room Air 07/30/16 17:04 97 Room Air Physical Exam GENERAL: alert, well appearing, well nourished, no distress, non-toxic HEAD: normal cephalic, atraumatic EYE EXAM: normal conjunctiva, PERRL and EOM's grossly intact OROPHARYNX: no exudate, no erythema, lips, buccal mucosa, and tongue normal and mucous membranes are moist EARS: TMs clear b/l NECK: supple, no nuchal rigidity, no adenopathy, non-tender CHEST: stable to compression anteriorly and posteriorly LUNGS: clear to auscultation. Normal chest wall mechanics HEART: no murmurs, S1 normal and S2 normal CHEST: Bruising over left chest wall with clear reproducible tenderness tracking from mid thoracic around to left breast. ABDOMEN: abdomen soft, non-tender, normo-active bowel sounds, no masses, no rebound or guarding. PELVIS: stable to compression anteriorly and posteriorly BACK: Back is symmetrical on inspection and there is no deformity, no midline tenderness, no CVA tenderness. UPPER EXTREMITIES: Bruising along entire left arm. Full active and passive range of motion of all joints without tenderness to palpation LOWER EXTREMITIES: Calves equal bilaterally. Full active and passive range of motion of all joints without tenderness to palpation NEURO EXAM: Normal sensorium, cranial nerves II-XII grossly intact, normal speech, no gross weakness of arms, no gross weakness of legs. GCS: 15. SKIN: Diffused bruising. Medical Decision & Procedures ER Provider Diagnostic Interpretation: Radiology results as stated below per my review and the radiologist's interpretation: CHEST ONE VIEW PORTABLE HISTORY: EVALUATE RESPIRATORY DISTRESS.DYSPNEA COMPARISON: Chest 07/27/2016. FINDINGS: The heart remains enlarged. No pneumothorax. No new focal lung consolidations. No evidence for pulmonary edema. No pleural effusions. Linear densities the left lung base favor scarring or atelectasis. This remains unchanged. IMPRESSION: No significant change compared to the prior study. No acute process. Electronically signed by: Lobo Farris M.D. 07/30/2016 6:34 PM Laboratory Results 07/30/16 18:05 Red Blood Count 4.23, Mean Corpuscular Volume 89.4, Mean Corpuscular Hemoglobin 29.3, Mean Corpuscular Hemoglobin Concent 32.8, Mean Platelet Volume 10.2, Neutrophils (%) (Auto) 68.3, Lymphocytes (%) (Auto) 21.3, Monocytes (%) (Auto) 6.5, Eosinophils (%) (Auto) 2.6, Basophils (%) (Auto) 0.4, Neutrophils # (Auto) 4.65, Lymphocytes # (Auto) 1.45, Monocytes # (Auto) 0.44, Eosinophils # (Auto) 0.18, Basophils # (Auto) 0.03 07/30/16 18:05 Test 07/30/16 18:05 07/30/16 20:00 White Blood Count 6.81 K/uL (4.8-10.8) Red Blood Count 4.23 M/uL (4.2-5.4) Hemoglobin 12.4 g/dL (12.0-16.0) Hematocrit 37.8 % (37-47) Mean Corpuscular Volume 89.4 fL (80-100) Mean Corpuscular Hemoglobin 29.3 pg (25-34) Mean Corpuscular Hemoglobin Concent 32.8 g/dl (32-36) Platelet Count 217 K/uL (130-400) Mean Platelet Volume 10.2 fL (7.4-10.4) Neutrophils (%) (Auto) 68.3 % Lymphocytes (%) (Auto) 21.3 % Monocytes (%) (Auto) 6.5 % Eosinophils (%) (Auto) 2.6 % Basophils (%) (Auto) 0.4 % Neutrophils # (Auto) 4.65 K/uL (1.4-6.5) Lymphocytes # (Auto) 1.45 K/uL (1.2-3.4) Monocytes # (Auto) 0.44 K/uL (0.11-0.59) Eosinophils # (Auto) 0.18 K/uL (0-0.5) Basophils # (Auto) 0.03 K/uL (0-0.2) RDW Standard Deviation 46.2 fL (36.4-46.3) RDW Coefficient of Variation 14.2 % (11.5-14.5) Immature Granulocyte % (Auto) 0.9 % Immature Granulocyte # (Auto) 0.06 K/uL (0.00-0.02) Prothrombin Time 32.2 SECONDS (9.0-12.0) Prothromb Time International Ratio 2.9 (0.9-1.1) Anion Gap 3.0 mmol/L (3-11) Est Creatinine Clear Calc Drug Dose 34.3 ml/min Estimated GFR () 42.1 Estimated GFR (Non- 36.3 BUN/Creatinine Ratio 18.7 (10-20) Calcium Level 8.8 mg/dl (8.5-10.1) Total Bilirubin 0.8 mg/dl (0.2-1) Aspartate Amino Transf (AST/SGOT) 15 U/L (15-37) Alanine Aminotransferase (ALT/SGPT) 19 U/L (12-78) Alkaline Phosphatase 103 U/L (45-117) Troponin I < 0.015 ng/ml (0-0.045) Total Protein 6.6 gm/dl (6.4-8.2) Albumin 3.2 gm/dl (3.4-5.0) Globulin 3.4 gm/dl (2.5-4.0) Albumin/Globulin Ratio 0.9 (0.9-2) Urine Color YELLOW Urine Appearance CLEAR (CLEAR) Urine pH 5.0 (4.5-7.5) Urine Specific [place] 1.017 (1.000-1.030) Urine Protein NEG (NEG) Urine Glucose (UA) NEG (NEG) Urine Ketones NEG (NEG) Urine Occult Blood TRACE (NEG) Urine Nitrite NEG (NEG) Urine Bilirubin NEG (NEG) Urine Urobilinogen NEG (NEG) Urine Leukocyte Esterase SMALL (NEG) Urine WBC (Auto) 1-5 /hpf (0-5) Urine RBC (Auto) 0-4 /hpf (0-4) Urine Hyaline Casts (Auto) 1-5 /lpf (0-5) Urine Epithelial Cells (Auto) 5-10 /lpf (0-5) Urine Bacteria (Auto) NEG (NEG) Laboratory results per my review. ECG Indication: SOB/dyspnea Rate (beats per minute): 73 Rhythm: atrial fibrillation Findings: Q waves (Inferior and Septal), other (Normal axis) Comparison ECG Date: 07/27/2016 Change: no significant change ED Course ED COURSE: Vital signs were reviewed and showed normal vitals. The patients medical record was reviewed The above diagnostic studies were performed and reviewed. ED treatments and interventions as stated above. 1738: The patient was evaluated in room B4B. A complete history and physical examination was performed. 2014: Reevaluated and updated the patient at this time. 2054: Upon reevaluation, the patient is doing well.I discussed my findings with the patient and she understands and agrees with the treatment plan. Based on the patients age, coexisting illnesses, exam and lab findings the decision to treat as an outpatient was made. The patient remained stable while under my care. The patient appeared well at the time of discharge. Medical Decision Differential diagnoses include major intracranial, cervical, spinal, thoracic, abdominal, pelvic and neurologic injury. Fracture, contusion, sprain, strain, laceration, abrasions included as well. Patient is an 89-year-old female who presents the ER for chest pain which is been present the past 10 days. She notes that this has been present since she fell. She does have diffuse bruising on her left side. Pain is clearly reproducible on exam. She also complained of shortness of breath at 9 AM this morning which lasted for several seconds. She notes that she just could not take a breath. This resolved very quickly. CBC along with BMP, LFTs, bilirubin and troponin were negative. UA was negative. INR was supratherapeutic. Previous visit for same complaint had a negative d-dimer and consequently I did not pursue this any further. Chest x-ray was unremarkable. Patient and daughter were updated at bedside. She was discharged with reproducible musculoskeletal pain. Impression Primary Impression: Bruised ribs Scribe Attestation The scribe's documentation has been prepared under my direction and personally reviewed by me in its entirety. I confirm that the note above accurately reflects all work, treatment, procedures, and medical decision making performed by me. Departure Information Dispostion Home / Self-Care Referrals Edwardo Tovar M.D. (PCP) Forms HOME CARE DOCUMENTATION FORM, IMPORTANT VISIT INFORMATION Patient Instructions ED Contusion Rib, My [facility] Additional Instructions Please follow up with your primary care doctor with in the next 24 hours. Any worsening of your symptoms, please return to the ED immediately. This includes fevers, new shortness of breath, change in her pain, unable to breathe, or any other concerning signs or symptoms from your standpoint. Problem Qualifiers Primary Impression: Bruised ribs Encounter type: initial encounter Laterality: left Qualified Codes: S20.212A - Contusion of left front wall of thorax, initial encounter
[2016-08-05] MEDS ORDERED: SULF800T23 PO (13:38)
[2016-12-24] MEDS ORDERED: CHOL100041 PO (00:48)
[2016-12-24] MEDS ORDERED: MOME6000 NAE (00:53)
[2016-12-24] MEDS ORDERED: NYST100010 TD (00:55)
[2016-12-24] MEDS ORDERED: POTA10TA PO (00:58)
[2016-12-24] MEDS ORDERED: PSYLPOW6 PO (01:01)
[2016-12-24] MEDS ORDERED: SALI1SPR3 NAE (01:03)
[2016-12-24] MEDS ORDERED: MENTOIN TD (01:13)
[2016-12-24] MEDS ORDERED: GUAI1TAB55 PO (01:25)
[2016-12-24] MEDS ORDERED: ALUM-51 PO (01:27)
[2016-12-24] MEDS ORDERED: [UNRECOGNIZED DRUG - CODE] PO (01:29)
[2016-12-24] MEDS ORDERED: POLY1SOL6 OP (01:31)
[2016-12-24] MEDS ORDERED: ACET-1256 PO (09:04)
[2016-12-24] MEDS ORDERED: LSX40 PO (09:04)
[2016-12-24] MEDS ORDERED: NRN100 PO (09:04)
[2016-12-24] MEDS ORDERED: LSX80 PO (09:04)
[2016-12-24] MEDS ORDERED: IMD/2 PO (10:51)
[2016-12-24] MEDS ORDERED: DOCU-94 PO (10:51)
[2016-12-24] MEDS ORDERED: CARV6.252 PO (10:51)
[2016-12-24] MEDS ORDERED: DIPH25CA65 PO (10:51)
[2016-12-24] MEDS ORDERED: MOML PO (15:24)
[2016-12-24] MEDS ORDERED: PRVHFAIN INH (18:07)
[2016-12-24] MEDS ORDERED: ESCI10TA17 PO (18:07)
[2016-12-24] MEDS ORDERED: TRAM-10 PO (18:07)
[2016-12-24] MEDS ORDERED: DORZ1SOL6 OPB (18:07)
[2016-12-24] MEDS ORDERED: TYLOTC500 PO (18:07)
[2016-12-24] MEDS ORDERED: ONDA4TAB46 PO (18:07)
[2016-12-24] MEDS ORDERED: [UNRECOGNIZED DRUG - CODE] TOP (21:22)
[2016-12-24] MEDS ORDERED: CARB1SOL8 OT (21:22)
[2016-12-24] MEDS ORDERED: CRAN1TAB3 PO (21:22)
[2016-12-24] MEDS ORDERED: SYMIN160 INH (21:22)
[2016-12-24] MEDS ORDERED: LEVO100T7 PO (21:22)
[2016-12-24] MEDS ORDERED: MENTOIN TOP (21:22)
[2016-12-24] MEDS ORDERED: WARF-280 PO (21:22)
[2016-12-24] MEDS ORDERED: MONT1TAB3 PO (23:30)
[2016-12-24] MEDS ORDERED: SIMV20TA2 PO (23:32)
[2016-12-24] MEDS ORDERED: PRED1SUS3 OPB (23:36)
[2016-12-25] MEDS ORDERED: NZRCR TOP (22:55)
[2016-12-25] MEDS ORDERED: HYDRCRE28 TOP (22:55)
[2016-12-25] MEDS ORDERED: TRMCR515 TOP (22:55)
== END 2016-07-30 21:15 | disposition home or self-care (01) ==
LOC: EDBD 16:59 → C.EDB 17:00
DX: S20.212A Contusion of left front wall of thorax, initial encounter (principal); W19.XXXA Unspecified fall, initial encounter; S40.022A Contusion of left upper arm, initial encounter; M54.9 Dorsalgia, unspecified; M19.90 Unspecified osteoarthritis, unspecified site; J45.909 Unspecified asthma, uncomplicated; I48.91 Unspecified atrial fibrillation; I50.9 Heart failure, unspecified; E78.5 Hyperlipidemia, unspecified; Z79.01 Long term (current) use of anticoagulants; Z96.659 Presence of unspecified artificial knee joint; Z83.3 Family history of diabetes mellitus; Z82.49 Family history of ischemic heart disease and other diseases of the circulatory system

== ENCOUNTER → 2016-08-01 | Outpatient (CLI) | payer OTHER, BC ==
[~2016-08-01] MED LIST changes: +ACET-1256 PO; +ALUM-51 PO; +CARB1SOL8 OT; +CARV6.252 PO; +CHOL100041 PO; +CRAN1TAB3 PO; +DIPH25CA65 PO; +DOCU-94 PO; +DORZ1SOL6 OPB; +ESCI10TA17 PO; +GUAI1TAB55 PO; +HYDR25SU20 PR; +HYDRCRE28 TOP; +IMD/2 PO; -KFL500HP PO; +LEVO100T7 PO; +LSX40 PO; +LSX80 PO; +MENTOIN TD; +MENTOIN TOP; +MOME6000 NAE; +MOML PO; +MONT1TAB3 PO; +NRN100 PO; +NYST100010 TD; +NZRCR TOP; +ONDA4TAB46 PO; +POLY1SOL6 OP; +POTA10TA PO; +PRED1SUS3 OPB; +PRVHFAIN INH; +PSYLPOW6 PO; +SALI1SPR3 NAE; +SIMV20TA2 PO; +SULF800T23 PO; +TRAM-10 PO; +TRMCR515 TOP; +TYLOTC500 PO; +WARF-280 PO; +[UNRECOGNIZED DRUG - CODE] PO; +[UNRECOGNIZED DRUG - CODE] TOP
[2016-08-01 10:01] LABS: INR 1.4 (0.9-1.1); PROTHROMBIN TIME (PATIENT) 14.8 SECONDS (9.0-12.0)
== END | disposition home or self-care (01) ==
LOC: C.LABSPEC 09:34
PROVIDERS: ATTEND Internal Medicine Interventional Cardiology
DX: I48.2 Chronic atrial fibrillation (principal)

== ENCOUNTER → 2016-08-14 | Outpatient (CLI) | payer OTHER, BC ==
[2016-08-14 10:57] LABS: INR 3.9 (0.9-1.1)
== END | disposition home or self-care (01) ==
LOC: C.LABSPEC 10:25
PROVIDERS: ATTEND Internal Medicine Interventional Cardiology
DX: Z79.01 Long term (current) use of anticoagulants (principal)

== ENCOUNTER → 2016-09-09 | Outpatient (CLI) | payer OTHER, BC ==
[~2016-09-09] MED LIST changes: -SULF800T23 PO
[2016-09-09 08:54] LABS: INR 3.1 (0.9-1.1)
== END | disposition home or self-care (01) ==
LOC: C.LABSPEC 08:20
PROVIDERS: ATTEND Internal Medicine Geriatric Medicine
DX: Z79.01 Long term (current) use of anticoagulants (principal)

== ENCOUNTER → 2016-09-16 | Outpatient (CLI) | payer OTHER, BC ==
[2016-09-16 10:12] LABS: INR 2.3 (0.9-1.1); PROTHROMBIN TIME (PATIENT) 25.2 SECONDS (9.0-12.0)
== END | disposition home or self-care (01) ==
LOC: C.LABSPEC 08:31
PROVIDERS: ATTEND Internal Medicine Geriatric Medicine
DX: I48.2 Chronic atrial fibrillation (principal); Z79.01 Long term (current) use of anticoagulants

== ENCOUNTER → 2016-09-23 | Outpatient (CLI) | payer OTHER, BC ==
[2016-09-23 11:43] LABS: BASO % 0.6 %; BASO ABS # 0.03 K/uL (0-0.2); COMPLETE YES; EOS % 3.3 %; HEMATOCRIT 35.3 % (37-47); IG% 0.8 %; LYMPH % 28.5 %; LYMPH ABS # 1.47 K/uL (1.2-3.4); MEAN CELL VOLUME 93.1 fL (80-100); MEAN CORPUSCULAR HEMOGLOBIN 29.8 pg (25-34); MEAN PLATELET VOLUME 10.9 fL (7.4-10.4); MONO % 10.3 %; NEUT % 56.5 %; PLATELET COUNT 177 K/uL (130-400); RED BLOOD COUNT 3.79 M/uL (4.2-5.4); WHITE BLOOD COUNT 5.16 K/uL (4.8-10.8)
[2016-09-23 11:52] LABS: BLOOD UREA NITROGEN 26 mg/dl (7-18); BUN/CREATININE RATIO 19.7 (10-20); CARBON DIOXIDE 26 mmol/L (21-32); CHLORIDE 107 mmol/L (98-107); GLUCOSE 93 mg/dl (70-99); POTASSIUM 3.6 mmol/L (3.5-5.1); SODIUM 143 mmol/L (136-145)
[2016-09-23 11:56] LABS: INR 1.9 (0.9-1.1); PROTHROMBIN TIME (PATIENT) 20.6 SECONDS (9.0-12.0)
[2016-09-23 12:02] LABS: THYROID STIMULATING HORMONE 0.309 uIu/ml (0.300-4.500)
== END | disposition home or self-care (01) ==
LOC: C.LABWYN 10:40
PROVIDERS: ATTEND Internal Medicine Geriatric Medicine
DX: L03.90 Cellulitis, unspecified (principal); R60.9 Edema, unspecified; I10 Essential (primary) hypertension; Z79.01 Long term (current) use of anticoagulants

== ENCOUNTER → 2016-09-30 | Outpatient (CLI) | payer OTHER, BC ==
[2016-09-30 10:18] LABS: INR 1.7 (0.9-1.1); PROTHROMBIN TIME (PATIENT) 18.3 SECONDS (9.0-12.0)
== END ==
LOC: C.LABWYN 08:01
PROVIDERS: ATTEND Internal Medicine Geriatric Medicine
DX: Z79.01 Long term (current) use of anticoagulants (principal)

== ENCOUNTER → 2016-10-09 | Outpatient (CLI) | payer OTHER, BC ==
[~2016-10-09] MED LIST changes: +LEVO125T4 PO; -LEVO125T5 PO
[2016-10-09 09:35] LABS: INR 2.1 (0.9-1.1); PROTHROMBIN TIME (PATIENT) 23.5 SECONDS (9.0-12.0)
== END | disposition home or self-care (01) ==
LOC: C.LABSPEC 09:00
PROVIDERS: ATTEND Internal Medicine Geriatric Medicine
DX: Z51.81 Encounter for therapeutic drug level monitoring (principal); Z79.01 Long term (current) use of anticoagulants

== ENCOUNTER → 2016-10-16 | Outpatient (CLI) | payer OTHER, BC ==
[~2016-10-16] MED LIST changes: -CARB1SOL8 OT; -CRAN1TAB3 PO; -HYDRCRE28 TOP; -LEVO100T7 PO; -MENTOIN TOP; -NZRCR TOP; -TRMCR515 TOP; -WARF-280 PO; -[UNRECOGNIZED DRUG - CODE] TOP
[2016-10-16 08:42] LABS: INR 2.2 (0.9-1.1); PROTHROMBIN TIME (PATIENT) 23.9 SECONDS (9.0-12.0)
== END | disposition home or self-care (01) ==
LOC: C.LABWYN 07:49
PROVIDERS: ATTEND Internal Medicine Geriatric Medicine
DX: Z79.01 Long term (current) use of anticoagulants (principal)

== ENCOUNTER → 2016-10-21 | Outpatient (CLI) | payer OTHER, BC ==
[~2016-10-21] MED LIST changes: +CARB1SOL8 OT; +CRAN1TAB3 PO; +HYDRCRE28 TOP; +LEVO100T7 PO; +MENTOIN TOP; +NZRCR TOP; +TRMCR515 TOP; +WARF-280 PO; +[UNRECOGNIZED DRUG - CODE] TOP
[2016-10-21 08:36] LABS: HEMATOCRIT 34.6 % (37-47); MEAN CELL VOLUME 91.8 fL (80-100); MEAN CORPUSCULAR HEMOGLOBIN 30.5 pg (25-34); MEAN CORPUSCULAR HGB CONC 33.2 g/dl (32-36); PLATELET COUNT 170 K/uL (130-400); RED BLOOD COUNT 3.77 M/uL (4.2-5.4); WHITE BLOOD COUNT 5.01 K/uL (4.8-10.8)
[2016-10-21 08:45] LABS: BLOOD UREA NITROGEN 35 mg/dl (7-18); BUN/CREATININE RATIO 25.1 (10-20); CALCIUM 8.8 mg/dl (8.5-10.1); CARBON DIOXIDE 28 mmol/L (21-32); CHLORIDE 109 mmol/L (98-107); GLUCOSE 90 mg/dl (70-99); SODIUM 143 mmol/L (136-145)
== END | disposition home or self-care (01) ==
LOC: C.LABWYN 07:48
PROVIDERS: ATTEND Internal Medicine Geriatric Medicine
DX: I35.0 Nonrheumatic aortic (valve) stenosis (principal); T14.8 Other injury of unspecified body region; I48.2 Chronic atrial fibrillation; I49.3 Ventricular premature depolarization; K62.5 Hemorrhage of anus and rectum; D12.6 Benign neoplasm of colon, unspecified; I87.2 Venous insufficiency (chronic) (peripheral); I89.0 Lymphedema, not elsewhere classified; I11.0 Hypertensive heart disease with heart failure

== ENCOUNTER → 2016-10-28 | Outpatient (CLI) | payer OTHER, BC ==
[2016-10-28 08:28] LABS: INR 2.4 (0.9-1.1); PROTHROMBIN TIME (PATIENT) 27.1 SECONDS (9.0-12.0)
== END | disposition home or self-care (01) ==
LOC: C.LABWYN 07:50
PROVIDERS: ATTEND Internal Medicine Geriatric Medicine
DX: Z79.01 Long term (current) use of anticoagulants (principal)

== ENCOUNTER → 2016-11-13 | Outpatient (CLI) | payer OTHER, BC ==
[2016-11-13 09:46] LABS: BASO % 0.4 %; BASO ABS # 0.02 K/uL (0-0.2); COMPLETE YES; EOS % 2.7 %; IG% 0.6 %; LYMPH % 34.2 %; LYMPH ABS # 1.65 K/uL (1.2-3.4); MEAN CORPUSCULAR HEMOGLOBIN 29.4 pg (25-34); MEAN CORPUSCULAR HGB CONC 31.6 g/dl (32-36); MEAN PLATELET VOLUME 10.8 fL (7.4-10.4); MONO % 9.3 %; NEUT % 52.8 %; PLATELET COUNT 187 K/uL (130-400); RED BLOOD COUNT 3.98 M/uL (4.2-5.4); WHITE BLOOD COUNT 4.83 K/uL (4.8-10.8)
[2016-11-13 09:53] LABS: BLOOD UREA NITROGEN 27 mg/dl (7-18); BUN/CREATININE RATIO 17.7 (10-20); CALCIUM 8.7 mg/dl (8.5-10.1); CARBON DIOXIDE 28 mmol/L (21-32); CHLORIDE 109 mmol/L (98-107); GLUCOSE 103 mg/dl (70-99); POTASSIUM 3.8 mmol/L (3.5-5.1); SODIUM 143 mmol/L (136-145)
== END | disposition home or self-care (01) ==
LOC: C.LABWYN 09:18
PROVIDERS: ATTEND Internal Medicine Geriatric Medicine
DX: Z79.01 Long term (current) use of anticoagulants (principal)